=== PATIENT | male | born 1995 | race African-American/Black ===

== ENCOUNTER 2020-06-06 22:20 | Emergency (ER) | payer SELFPAY ==
[~2020-06-06] VITALS: Ht 193 cm; Wt 102.1 kg
[2020-06-06 22:22] VITALS: BP 142/90
[2020-06-06] MEDS ORDERED: LIDOCAINE 1% HCL (LOCAL ANESTH.) INJ 20ML MDV ID ONE (23:45)
== END 2020-06-07 00:27 | disposition home or self-care (01) ==
LOC: ER 22:27
DX: L02.31 Cutaneous abscess of buttock (principal)
CPT/HCPCS: 10060; 99283; J2001